=== PATIENT | female | born 1990 | race Caucasian/White ===

== ENCOUNTER 2016-11-15 23:10 | Emergency (ER) | payer OTHER ==
[~2016-11-15 23:10] MED LIST: ATORVASTATIN CA40 M1; METFORMIN HCL500 MG PO; QUETIAPINE FUMA25 M1 PO
[2016-11-16 02:06] LABS: BASOPHIL % 0.5 % (0-2); PLATELET COUNT 296 x10^3mcL (130-400); RED CELL DISTRIBUTION WIDTH 13.6 % (11.5-14.5)
[2016-11-16 02:13] LABS: CALCIUM 8.4 mg/dL (8.5-10.1); CARBON DIOXIDE 26.3 mmol/L (21-32); CHLORIDE SERUM 105 mmol/L (98-107); CREATININE SERUM 0.7 mg/dL (0.6-1.0); GFR1 > 60 mL/min; GLUCOSE SERUM 81 mg/dL (74-106); POTASSIUM SERUM 3.6 mmol/L (3.5-5.1); SODIUM SERUM 141 mmol/L (136-145)
[2016-11-16 02:15] LABS: AMPHETAMINE QUAL UR POSITIVE (NEG <=1000)
[2016-11-16 02:17] LABS: ALBUMIN 3.7 g/dL (3.4-5.0); ALKALINE PHOSPHATASE 74 U/L (46-116); ALT/SGPT 72 U/L (14-59); AST/SGOT 31 U/L (15-37); TOTAL PROTEIN, SERUM 7.1 g/dL (6.4-8.2)
[2016-11-16 06:38] VITALS: BP 124/68
== END 2016-11-16 06:38 | disposition home or self-care (01) ==
LOC: ED 23:10
PROVIDERS: Emergency Medicine
DX: F15.10 Other stimulant abuse, uncomplicated (principal); F31.9 Bipolar disorder, unspecified; F29 Unspecified psychosis not due to a substance or known physiological condition
CPT/HCPCS: 36415; G0480

== ENCOUNTER 2016-11-18 12:38 | Emergency (ER) | payer OTHER ==
[~2016-11-18] VITALS: Ht 144.8 cm; Wt 52.8 kg
[2016-11-18 12:47] VITALS: BP 146/102
== END 2016-11-18 13:48 | disposition home or self-care (01) ==
LOC: ED 12:38
DX: K02.9 Dental caries, unspecified (principal); F15.90 Other stimulant use, unspecified, uncomplicated; F20.9 Schizophrenia, unspecified; F31.9 Bipolar disorder, unspecified

== ENCOUNTER 2017-03-01 23:47 | Emergency (ER) | payer OTHER ==
[~2017-03-01] VITALS: Ht 154.9 cm; Wt 54.4 kg
[2017-03-02 00:54] LABS: BASOPHIL % 0.5 % (0-2); PLATELET COUNT 341 x10^3mcL (130-400); RED CELL DISTRIBUTION WIDTH 13.1 % (11.5-14.5)
[2017-03-02 01:13] LABS: CARBON DIOXIDE 25.5 mmol/L (21-32); CHLORIDE SERUM 103 mmol/L (98-107); CREATININE SERUM 0.6 mg/dL (0.6-1.0); GFR1 > 60 mL/min; GLUCOSE SERUM 84 mg/dL (74-106); POTASSIUM SERUM 3.6 mmol/L (3.5-5.1); SODIUM SERUM 140 mmol/L (136-145)
[2017-03-02 01:18] LABS: ALBUMIN 4.1 g/dL (3.4-5.0); ALKALINE PHOSPHATASE 76 U/L (46-116); ALT/SGPT 82 U/L (14-59); AST/SGOT 36 U/L (15-37); BILIRUBIN TOTAL 0.5 mg/dL (0.20-1.00); TOTAL PROTEIN, SERUM 8.1 g/dL (6.4-8.2)
[2017-03-02 01:34] VITALS: BP 132/74
== END 2017-03-02 01:40 | disposition home or self-care (01) ==
LOC: ED 23:47
PROVIDERS: Emergency Medicine
DX: Z02.89 Encounter for other administrative examinations (principal); F31.9 Bipolar disorder, unspecified; F20.9 Schizophrenia, unspecified; Z79.899 Other long term (current) drug therapy
CPT/HCPCS: 36415; G0480

== ENCOUNTER 2017-03-14 06:10 | Emergency (ER) | payer OTHER | END 2017-03-14 06:42 | disposition left against medical advice (07) | LOC: ED 06:10 | DX: F15.10 Other stimulant abuse, uncomplicated (principal); Z53.21 Procedure and treatment not carried out due to patient leaving prior to being seen by health care provider ==

== ENCOUNTER 2017-03-14 16:24 | Emergency (ER) | payer OTHER ==
[~2017-03-14] VITALS: Ht 154.9 cm; Wt 54.4 kg
[2017-03-14 18:40] VITALS: BP 132/89
[2017-03-14 18:42] LABS: UA SPECIFIC GRAVITY >=1.030 (1.005-1.035); microscopic required? YES; urine erythrocyte 2+ (NEGATIVE)
[2017-03-14 18:43] LABS: AMPHETAMINE QUAL UR POSITIVE (NEG <=1000)
[2017-03-14 18:51] LABS: BASOPHIL % 0.3 % (0-2); PLATELET COUNT 302 x10^3mcL (130-400); RED CELL DISTRIBUTION WIDTH 12.7 % (11.5-14.5)
[2017-03-14 18:55] LABS: ALBUMIN 3.4 g/dL (3.4-5.0); ALKALINE PHOSPHATASE 58 U/L (46-116); ALT/SGPT 62 U/L (14-59); AST/SGOT 31 U/L (15-37); BILIRUBIN TOTAL 0.5 mg/dL (0.20-1.00); CALCIUM 8.1 mg/dL (8.5-10.1); CARBON DIOXIDE 25.6 mmol/L (21-32); CHLORIDE SERUM 111 mmol/L (98-107); CREATININE SERUM 0.6 mg/dL (0.6-1.0); GFR1 > 60 mL/min; GLUCOSE SERUM 82 mg/dL (74-106); SODIUM SERUM 146 mmol/L (136-145); TOTAL PROTEIN, SERUM 6.7 g/dL (6.4-8.2)
== END 2017-03-14 18:40 | disposition other institution (70) ==
LOC: ED 16:24
PROVIDERS: Emergency Medicine
DX: Z02.89 Encounter for other administrative examinations (principal); F15.10 Other stimulant abuse, uncomplicated; F12.10 Cannabis abuse, uncomplicated
CPT/HCPCS: 83880; G0480; J1630; J2060; J3486; J7030

== ENCOUNTER 2017-03-14 16:24 | Emergency (ER) | payer OTHER | END 2017-03-14 18:40 | disposition other institution (70) | LOC: ED 16:24 | DX: Z02.89 Encounter for other administrative examinations (principal) ==

== ENCOUNTER 2017-03-20 23:24 | Emergency (ER) | payer OTHER ==
[2017-03-21 02:45] VITALS: BP 146/56
== END 2017-03-21 02:45 | disposition home or self-care (01) ==
LOC: ED 23:24
DX: F41.0 Panic disorder [episodic paroxysmal anxiety] (principal); F31.9 Bipolar disorder, unspecified; F20.9 Schizophrenia, unspecified

== ENCOUNTER 2017-04-09 22:07 | Emergency (ER) | payer OTHER ==
[~2017-04-09] VITALS: Ht 149.9 cm; Wt 52.6 kg
[2017-04-09 22:59] VITALS: Ht 149.9 cm; Wt 52.6 kg
[2017-04-10 00:22] VITALS: BP 130/84
== END 2017-04-10 00:22 | disposition home or self-care (01) ==
LOC: ED 22:07
DX: T73.0XXA Starvation, initial encounter (principal); Z59.0 Homelessness; X58.XXXA Exposure to other specified factors, initial encounter

== ENCOUNTER 2019-05-21 03:58 | Emergency (ER) | payer OTHER ==
[~2019-05-21] VITALS: Ht 144.8 cm; Wt 60.3 kg
[2019-05-21 04:02] VITALS: Ht 144.8 cm; Wt 60.3 kg
[2019-05-21 05:00] VITALS: BP 132/76
[2019-05-21 05:44] LABS: AMPHETAMINE QUAL UR POSITIVE (See below)
== END 2019-05-21 05:00 | disposition left against medical advice (07) ==
LOC: ED 03:58
PROVIDERS: Emergency Medicine
DX: G47.00 Insomnia, unspecified (principal); F31.9 Bipolar disorder, unspecified; F20.9 Schizophrenia, unspecified
CPT/HCPCS: G0480